=== PATIENT | female | born 1975 ===

== ENCOUNTER 2019-07-03 09:53 | Emergency (ER) | payer SELFPAY ==
[2019-07-03] MEDS ORDERED: SODIUM CHLORIDE 0.9% 1000 ML 1,000 ML IV ONE (09:57)
[2019-07-03] MEDS ORDERED: TETANUS,DIPH,PERTUSS(ACELL) VACCINE 0.5 ML SYRINGE IM ONE (09:57)
[2019-07-03] MEDS ORDERED: MORPHINE 4 MG/1 ML INJ IV ONE ×2 (09:59→10:55)
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
[2019-07-03 11:06] LABS: Hematocrit 39.3 % (30.3-42.9); Hemoglobin 13.4 gm/dl (10.1-14.3); Mean Corpuscular HGB Conc 34 % (30-34); Mean Corpuscular Volume 93 fl (79-97); Platelet Count 258 K/mm3 (140-440); Red Blood Count 4.24 M/mm3 (3.65-5.03); Red Cell Distribution Width 13.1 % (13.2-15.2)
[2019-07-03 11:09] VITALS: BP 138/83
[2019-07-03 11:22] LABS: BUN/Creatinine Ratio 35; Blood Urea Nitrogen 14 mg/dL (7-17); Calcium 8.4 mg/dL (8.4-10.2); Hemolysis Index 9
== END 2019-07-03 12:00 | disposition other institution (70) ==
LOC: ED 09:53
DX: T20.20XA Burn of second degree of head, face, and neck, unspecified site, initial encounter (principal); T21.21XA Burn of second degree of chest wall, initial encounter
CPT/HCPCS: 36415; 80048; 82375; 85025; 90471; 90715; 93005; 93010; 96374; 96376; 99291; J2270; J7030